=== PATIENT | female | born 1940 | race African-American/Black ===

== ENCOUNTER 2017-01-31 14:05 | Observation (INO) | payer OTHER, BC ==
--- NOTE | ~2017-01-31 | EKG ---
PATIENT: ANATOLIY TRAYLOR UNIT #: [id number] Ventricular Rate: 55 BPM Atrial Rate: 55 BPM P-R Interval: 146 ms QRS Duration: 130 ms Q-T Interval: 426 ms QTC Calculation(Bezet): 407 ms P [place]: 66 degrees Calculated R [place]: -12 degrees Calculated T [place]: 22 degrees Diagnosis Line: Sinus bradycardia Diagnosis Line: Right bundle branch block Diagnosis Line: Abnormal ECG Diagnosis Line: No previous ECGs available Diagnosis Line: Confirmed by ADELAIDA LESLIE MD ([id number]) on Diagnosis Line: 02/01/2017 2:23:05 PM INTERPRETING MD: ANUJ DOBBS
--- NOTE | ~2017-01-31 | EKG ---
PATIENT: ANATOLIY TRAYLOR UNIT #: [id number] Ventricular Rate: 61 BPM Atrial Rate: 61 BPM P-R Interval: 140 ms QRS Duration: 132 ms Q-T Interval: 424 ms QTC Calculation(Bezet): 426 ms P [place]: 70 degrees Calculated R [place]: 5 degrees Calculated T [place]: 44 degrees Diagnosis Line: Normal sinus rhythm Diagnosis Line: Right bundle branch block Diagnosis Line: Abnormal ECG Diagnosis Line: When compared with ECG of 31-JAN-2017 13:32, Diagnosis Line: (unconfirmed) Diagnosis Line: No significant change was found Diagnosis Line: Confirmed by ADELAIDA LESLIE MD ([id number]) on Diagnosis Line: 02/01/2017 2:27:45 PM INTERPRETING MD: ANUJ DOBBS
--- NOTE | ~2017-01-31 | CR72 ---
[facility] A Service of [facility] & [facility] RADIOLOGY TEXT RESULTS PATIENT: ANATOLIY TRAYLOR LOCATION: [facility] : 38 UNIT #: [id number] AGE: [address]: HERMANN VÁSQUEZ MD SEX: F ORDER DR: [id number] [facility] [address] [place], [place] [address] [id number] MR#: [id number] Acc #: [id number] NAME: ANATOLIY TRAYLOR. : 1940 SEX: F STUDY DATE/TIME: 01/31/2017 1336 UNIT: [facility] ROOM: STUDY DESCRIPTION: CR Chest Single View Portable Attending Physician: Kulwinder Streeter D.O. Ordering Physician: Kulwinder Streeter D.O. Primary Care Physician: Norberto Shafer Jr., M.D. MEDICAL IMAGING REPORT This report is preliminary unless electronic signature is present EXAM Chest portable 01/31/2017 1336 hours HISTORY 76-year-old woman with midsternal chest pain, diaphoresis and dizziness today. COMPARISON 10/28/2010 FINDINGS Portable upright chest demonstrates normal heart size and a mildly tortuous aorta without change. There are benign calcified right paratracheal and precarinal lymph nodes. The lungs are clear. There is elevation of the right hemidiaphragm unchanged. IMPRESSION No acute cardiopulmonary findings. There are benign calcified lymph nodes present. There is stable elevation or undulation of the right hemidiaphragm. Dictated by... Giselle Teague M.D. THIS IS AN ELECTRONICALLY VERIFIED REPORT Giselle Teague M.D. at 01/31/2017 6:55 PM Katheryn TD: 01/31/2017 16:49 JOB #: [id number] MEDICAL IMAGING REPORT COPY
--- NOTE | ~2017-01-31 | DS ---
Unit #: [id number] #: [id number] Patient: ANATOLIY TRAYLOR [id number] [facility] [address] [place], [place] [address] [id number] MR#: [id number] NAME: ANATOLIY TRAYLOR. ROOM: 578 Age: 76 Sex: F Admission Date: 01/31/2017 : 1940 Discharge Date: 02/01/2017 Attending Physician: Cuco Snyder M.D. Primary Care Physician: Norberto Shafer Jr., M.D. DISCHARGE SUMMARY DISCHARGE DIAGNOSES 1. Atypical chest pain. 2. Hypertension. 3. Hyperlipidemia. 4. Diabetes. DIAGNOSTIC STUDIES LABORATORY: Most recent laboratory results: White blood cells 7.9, hemoglobin 11.2, hematocrit 35.1, platelets 285,000. Sodium 139, potassium 4.5, chloride 107, CO2 of 27, BUN 26, creatinine 1.2, glucose 93. Troponin is less than 0.05 x2. CARDIOVASCULAR: EKG shows normal sinus rhythm with a right bundle branch block. HOSPITAL COURSE The patient is a 76-year-old female who presented to the hospital with chest pain. She had approximately two episodes of chest pain that were mid sternal but lasted for three to five minutes. There was no radiation. There was no associated shortness of breath or diaphoresis. The chest pain is described to have some features that are reflux like. The patient was at her primary care's office when this happened and was transferred to [facility] for further workup. At [facility], the patient's troponins were negative x2 and her EKG shows normal sinus rhythm with a right bundle branch block. A 2D echocardiogram was done and is pending. The patient will need to have an outpatient Lexiscan Cardiolite stress test. I have discussed this with Dr. Mcclain and he is agreeable to this plan. DISCHARGE FOLLOWUP INSTRUCTIONS 1. The patient will be discharged home. 2. The patient will followup with Dr. Mcclain in two weeks. 3. The [facility] office will call to arrange an outpatient Lexiscan for the patient. 4. Healthy heart diet. 5. Activity as tolerated. 6. The patient should return to the ER if signs or symptoms worsen. DISCHARGE MEDICATIONS 1. Metformin 500 mg p.o. daily. 2. Coreg 3.125 mg p.o. daily. 3. Lipitor 40 mg p.o. daily. 4. Zestril 10 mg p.o. daily. Unit #: [id number] #: [id number] Patient: ANATOLIY TRAYLOR 5. Aspirin 81 mg p.o. daily. 6. Protonix 40 mg p.o. daily. 7. Levothyroxine 0.075 mg p.o. daily. Dictated by... Mamta Christie A.P.R.N. AM/ophelia TD: 02/01/2017 15:05 JOB #: [id number] DISCHARGE SUMMARY Page 1 of 1 X Mamta Christie ELOCUTION TEACHER X DISCHARGE SUMMARY
--- NOTE | ~2017-01-31 | HP ---
Unit #: [id number] #: [id number] Patient: ANATOLIY TRAYLOR [id number] [facility] [address] [place], [place] [address] [id number] I MR#: [id number] NAME: ANATOLIY TRAYLOR. ROOM: 578 Age: 76 Sex: F Admission Date: 01/31/2017 : 1940 Attending Physician: Hermann Snyder M.D. Primary Care Physician: Norberto Shafer Jr., M.D. HISTORY AND PHYSICAL CHIEF COMPLAINT Chest pain. HISTORY OF PRESENTING ILLNESS A 76-year-old -[place] female with past medical history of hypertension, diabetes, hyperlipidemia, hypothyroidism, comes transferred from PCP's office for chest pain. The patient reports this is her second episode of chest pain. Her first episode of chest pain occurred early in the morning which lasted for around five minutes. There was no radiation with activity. There was no associated shortness of breath. There was no radiation. Chest pain was pressure like and also had some features of reflux-like pain. Pain subsided within five minutes. Patient again in the afternoon at PCP's office again had another episode which was much more intense, lasted for 30 minutes, associated with some nausea and diaphoresis. It was pressure like with no radiation to the arm or the jaw and it slowly eased off in 30 minutes. Patient was transferred to [facility] at that time. On usual day to day activities patient denies any exertional chest pain. She does mention mild dyspnea on exertion. She denies orthopnea, PND, pedal edema, palpitations or syncopal episodes in past. She reports she has had stress test in past but the last one was done over 10 years ago and was deemed normal. PAST MEDICAL HISTORY 1. Hypertension. 2. Diabetes. 3. Hyperlipidemia. 4. Hypothyroidism. 5. Osteopenia. PAST SURGICAL HISTORY 1. Hysterectomy. 2. Left-sided mastectomy for breast cancer. ALLERGIES No known drug allergies. HOME MEDICATION LIST Includes: Unit #: [id number] #: [id number] Patient: ANATOLIY TRAYLOR 1. Metformin 500 mg p.o. b.i.d. 2. Lisinopril 10 mg p.o. daily. 3. Atorvastatin 40 mg p.o. daily. 4. Aspirin 81 mg p.o. daily. 5. Synthroid 75 mcg p.o. daily. SOCIAL HISTORY Patient is a former smoker. She quit 14 years ago when she was diagnosed with breast cancer, denies any illicit drug abuse or chronic alcohol intake. FAMILY HISTORY Family history is positive for CHF in mother, also father had cerebral hemorrhage. There is no history of premature coronary artery disease in the family. REVIEW OF SYMPTOMS GENERAL: No fever. No weight loss. NECK: No thyromegaly. No swelling. GASTROINTESTINAL: Positive for reflux-type symptoms. Denies any vomiting or diarrhea. No constipation. RESPIRATORY: No cough. No phlegm production. HEART: As per HPI. TESTING COORDINATOR: No headache. PSYCHIATRIY: No hallucination or delusions. MUSCULOSKELETAL: No deformities. No jaw pain or shoulder pain. SKIN: No ulcers. No rash. PHYSICAL EXAMINATION GENERAL: Patient in no acute distress. VITAL SIGNS: Patient's temperature 97.8, heart rate is 56 beats per minute, respiratory rate is 16, blood pressure is 144/74 mmHg. HEENT: PERRLA. NECK: No thyromegaly. No JVD. CHEST: Clear. Normal vesicular breath sounds heard bilaterally. HEART: S1, S2 are heard. There are no murmurs or rubs or gallops appreciated. EXTREMITIES: There is no edema. Warm. ABDOMEN: Soft, nontender. Bowel sounds are present. NEUROLOGIC: Neurologically speech and gait normal. PSYCHIATRIC: Mood and affect normal. SKIN: Intact. No ulcers. MUSCULOSKELETAL: No scoliosis seen. No deformities. DIAGNOSTIC STUDIES CARDIOVASCULAR: ECG shows normal sinus rhythm with right bundle branch block. There are no Q waves noted. LABORATORY: BMP: The patient's sodium is 139, potassium is 5.1, chloride is 106, bicarb is 27, BUN is 23 and creatinine 1.3, glucose is 104. Albumin is 4.1, AST is 16, ALT is 14. Troponin first set is negative at less than 0.05. Hemoglobin is 11.3, white count is 6.4 and platelet is 272. ASSESSMENT AND PLAN A 76-year-old -[place] lady with past medical history of hypertension, diabetes, hyperlipidemia, hypothyroidism, presents with chest pain. Unit #: [id number] #: [id number] Patient: ANATOLIY TRAYLOR 1. Chest discomfort: Patient has intermediate risk for obstructive coronary artery disease. Given two episodes, patient will undergo stress test in the morning provided she rules out of [place]. Will check serial cardiac enzymes. Continue the aspirin 81 mg p.o. daily. I do not feel too strongly about anticoagulating this lady. Will get a 2D echocardiogram to look for structural abnormalities. Provided the stress test and echo turn in normal, patient can be referred as an outpatient for GI workup for esophageal diseases. We will start the PPI also. 2. Hypertension, optimally controlled: Will continue lisinopril at 10 mg p.o. daily currently. The patient's potassium is noted to be 5.1. She is getting IV hydration at present. If potassium continues to be elevated tomorrow will adjust further. 3. Hyperlipidemia: Continue Lipitor at 40 mg p.o. daily. 4. Diabetes: Hold metformin. Insulin sliding scale. 5. SCDs for DVT prophylaxis. 6. Further plan of care after this testing done tomorrow. Dictated by Hermann Snyder M.D. SD/cf TD: 01/31/2017 21:05 JOB #: [id number] HISTORY AND PHYSICAL X HERMANN SNYDER MD HISTORY AND PHYSICAL
[~2017-01-31 14:05] MED LIST: ASPIRIN PO; ASPIRIN81 M1 PO; CALCIUM 500+D C1 TAB PO; CELEBREX PO; FLOVENT HFA12 GM INH; GLUCOPHAGE500 MG PO; LEVOXYL75 MC1 PO; LIPITOR PO; LIPITOR40 MG PO; OYSTER CALCIUM500 MG PO; PRINIVIL40 MG PO; ZYRTEC PO; ZYRTEC10 M2 PO
[2017-01-31 14:33] LABS: BASOPHIL% 0.4 % (0-2.5); DIFF IND NO; EOSINOPHIL# 0.3 X10e3 (0-0.7); HEMATOCRIT 35.2 % (35.0-45.0); HEMOGLOBIN 11.3 gm/dL (12.0-16.0); LYMPHOCYTE% 31.9 % (17.0-45.0); MEAN CELL VOLUME 86.5 FL (83-96); MEAN CORPUSCULAR HEMOGLOBIN 27.8 PG (28-34); MEAN CORPUSCULAR HGB CONC 32.1 g/dL (30-36); MEAN PLATELET VOLUME 7.5 FL (6.5-11.5); MONOCYTE# 0.5 X10e3 (0-1.0); MONOCYTE% 8.5 % (3.0-12.0); NEUTROPHIL# 3.5 X10e3 (1.5-7.1); NEUTROPHIL% 54.2 % (40-75); PLATELET COUNT 272 X10e3 (140-420); RED BLOOD COUNT 4.07 X10e (3.90-5.30); RED CELL DISTRIBUTION WIDTH 14.9 % (11.0-15.5); WHITE BLOOD COUNT 6.4 X10e3 (4.0-10.5)
[2017-01-31 14:46] LABS: ALBUMIN SERUM 4.1 g/dL (3.5-5.0); ALKALINE PHOSPHATASE 88 U/L (32-92); ALT (SGPT) 14 U/L (10-40); AST (SGOT) 16 U/L (10-42); BILIRUBIN,TOTAL 0.5 mg/dL (0.2-2.0); BLOOD UREA NITROGEN 23 mg/dL (9-23); BUN/CREATININE RATIO 17.69; CARBON DIOXIDE 27 mmol/L (22-31); CHLORIDE 106 mmol/L (100-111); CREATININE SERUM 1.3 mg/dL (0.6-1.4); GLOM FILT RATE Estimated 50.9 mL/min (>60); GLUCOSE FASTING 104 mg/dL (70-110); POTASSIUM 5.1 mmol/L (3.5-5.1); PROTEIN TOTAL SERUM 7.1 g/dL (6.0-8.3); SODIUM 139 mmol/L (135-145)
[2017-01-31 14:47] LABS: BILIRUBIN, DIRECT <0.1 mg/dL (0.0-0.2); BILIRUBIN,INDIRECT 0.4 mg/dL (0.0-0.9)
[2017-01-31 15:19] LABS: POC - CKMB 1.5 ng/mL (0.0-7.9); POC - TROPONIN <0.05 ng/mL (<=0.05)
[2017-01-31] MEDS ORDERED: LIPITOR40 MG PO (16:34)
[2017-01-31] MEDS ORDERED: SYNTHROID75 MCG PO (16:35)
[2017-01-31] MEDS ORDERED: PRINIVIL10 MG PO (16:35)
[2017-01-31] MEDS ORDERED: GLUCOPHAGE500 M1 PO (16:36)
[2017-01-31] MEDS ORDERED: ASPIRIN81 MG PO (16:36)
[2017-01-31 16:50] LABS: POC - CKMB <1.0 ng/mL (0.0-7.9); POC - TROPONIN <0.05 ng/mL (<=0.05)
[2017-01-31 23:08] LABS: %MB 1.5 % (0.0-4.0); MB 1.8 ng/ml
[2017-01-31 23:20] LABS: URINE APPEARANCE CLEAR; URINE BILIRUBIN NEG (NEG); URINE BLOOD NEG (NEG); URINE COLOR YELLOW; URINE GLUCOSE NEG (NEG); URINE KETONE NEG (NEG); URINE LEUKOCYTE ESTERASE NEG (NEG); URINE NITRATE NEG (NEG); URINE PH 7.5 (5-8); URINE PROTEIN NEG (NEG); URINE SPECIFIC GRAVITY 1.012 (1.003-1.035); URINE UROBILINOGEN 0.2 MG/DL (NEG)
[2017-01-31 23:24] LABS: CULTURE INDICATED? NO
[2017-02-01 06:28] LABS: BASOPHIL# 0.1 X10e3 (0-0.3); BASOPHIL% 1.2 % (0-2.5); EOSINOPHIL# 0.5 X10e3 (0-0.7); EOSINOPHIL% 6.8 % (0.0-7.0); HEMATOCRIT 35.1 % (35.0-45.0); HEMOGLOBIN 11.2 gm/dL (12.0-16.0); LYMPHOCYTE# 3.4 X10e3 (1.0-3.5); MEAN CELL VOLUME 86.7 FL (83-96); MEAN CORPUSCULAR HEMOGLOBIN 27.6 PG (28-34); MEAN CORPUSCULAR HGB CONC 31.9 g/dL (30-36); MEAN PLATELET VOLUME 7.9 FL (6.5-11.5); MONOCYTE# 0.7 X10e3 (0-1.0); MONOCYTE% 8.8 % (3.0-12.0); NEUTROPHIL# 3.2 X10e3 (1.5-7.1); NEUTROPHIL% 40.2 % (40-75); PLATELET COUNT 285 X10e3 (140-420); RED BLOOD COUNT 4.04 X10e (3.90-5.30); RED CELL DISTRIBUTION WIDTH 14.8 % (11.0-15.5); WHITE BLOOD COUNT 7.9 X10e3 (4.0-10.5)
[2017-02-01 06:29] LABS: DIFF IND NO
[2017-02-01 06:50] LABS: BUN/CREATININE RATIO 19.16; CREATININE SERUM 1.2 mg/dL (0.6-1.4); GLOM FILT RATE Estimated 55.9 mL/min (>60); POTASSIUM 4.5 mmol/L (3.5-5.1)
[2017-02-01 07:18] LABS: %MB 1.7 % (0.0-4.0); MB 2.2 ng/ml
[2017-02-01 13:01] LABS: %MB 1.6 % (0.0-4.0); MB 2.5 ng/ml
[2017-02-01] MEDS ORDERED: COREG3.125 MG PO (13:02)
[2017-02-01] MEDS ORDERED: PROTONIX PO (13:03)
== END 2017-02-01 15:47 | disposition home or self-care (01) ==
LOC: CED 14:05 → CEDOF 16:25 → C5C 20:58
PROVIDERS: Emergency Medicine; Internal Medicine Cardiovascular Disease; Internal Medicine Interventional Cardiology
DX: R07.89 Other chest pain (principal); I10 Essential (primary) hypertension; E78.5 Hyperlipidemia, unspecified; E11.9 Type 2 diabetes mellitus without complications; Z79.84 Long term (current) use of oral hypoglycemic drugs; Z85.3 Personal history of malignant neoplasm of breast; E03.9 Hypothyroidism, unspecified; Z79.82 Long term (current) use of aspirin; Z90.710 Acquired absence of both cervix and uterus; Z90.12 Acquired absence of left breast and nipple; Z82.49 Family history of ischemic heart disease and other diseases of the circulatory system
CPT/HCPCS: 36415; 71010; 80048; 80061; 80076; 81003; 82550; 82553; 82947; 83036; 83880; 84443; 84484; 85025; 85610; 85730; 93005; 93306; 99285; G0378